=== PATIENT | female | born 1985 ===

== ENCOUNTER 2017-02-13 11:00 | Outpatient (CLI) | payer OTHER | END 2017-02-13 11:01 | disposition home or self-care (01) | LOC: LAB.R 11:00 | PROVIDERS: ATTEND Obstetrics & Gynecology | DX: Z11.3 Encounter for screening for infections with a predominantly sexual mode of transmission (principal) | CPT/HCPCS: 87491; 87591 ==

== ENCOUNTER 2017-05-08 07:41 | Outpatient (CLI) | payer OTHER ==
--- NOTE | 2017-05-08 14:09 | DEXA Report ---
OB ULTRASOUND: 05/08/2017 CLINICAL INDICATION: anatomy. TECHNIQUE: Real-time scanning was performed with distribution sales representative static images obtained. LAST MENSTRUAL PERIOD 12/17/2016 Clinical Age 20 weeks 2 days US Age 20 weeks 6 days EFW Had[place] 378 grams EFW% Hadlock --- Heart Rate 159 EDC 09/23/2017 US EDC 09/19/2017 BPD [place] 20 weeks 4 days; Mean mm 48.0 HC [place] 21 weeks 2 days; Mean mm 189.4 AC [place] 21 weeks 2 days; Mean mm 161.3 FL [place] 20 weeks 1 day; Mean mm 32.7 Presentation transverse Placental Location anterior Cervical Length 4.1 cm Amniotic Fluid 16 cm FINDINGS: There is a single viable intrauterine gestation, in transverse lie. Feta heart rate is 159 BPM. The placenta is anterior, without evidence of previa. Amniotic fluid volume is normal, with an BESSY of 16.1. By size, the fetus measures 20 weeks 6 days (20 weeks 2 days by LMP dating). The following anatomic structures were visualized and appear normal: The intracranial contents, including the ventricles and posterior fossa; the lips and orbits; the spine; the heart, including 4 chamber view and outflow tracts, and diaphragm; the abdominal contents, including the stomach, the bilateral kidneys, and urinary bladder, as well as a normal 3 vessel cord insertion; 4 limbs. No free fluid or adnexal lesion is appreciated. IMPRESSION: SINGLE VIABLE INTRAUTERINE GESTATION, WITH SIZE IN KEEPING WITH LMP DATING. NORMAL ANATOMIC SURVEY. [facility]
== END 2017-05-08 07:42 | disposition home or self-care (01) ==
LOC: DI 07:41
PROVIDERS: ATTEND Obstetrics & Gynecology
DX: Z34.82 Encounter for supervision of other normal pregnancy, second trimester (principal)
CPT/HCPCS: 76811

== ENCOUNTER 2017-06-11 09:23 | Outpatient (CLI) | payer OTHER ==
[2017-06-11 11:07] LABS: HCT - HEMATOCRIT 34.6 % (37.0-47.0); HGB - HEMOGLOBIN 11.6 g/dL (12.0-16.0); MEAN CORPUSCULAR HEMOGLOBIN 28.3 pg (27.0-31.0); MEAN CORPUSCULAR HGB CONC 33.4 g/dL (32.0-36.0); MEAN CORPUSCULAR VOLUME 84.7 fL (81.0-99.0); MEAN PLATELET VOLUME 8.3 fL (7.9-10.8); RED BLOOD COUNT 4.09 10^6/uL (4.20-5.40); RED CELL DISTRIBUTION WIDTH 14.1 % (12.0-15.0); WHITE BLOOD COUNT 10.3 x10^3/uL (4.8-10.8)
== END 2017-06-11 09:24 | disposition home or self-care (01) ==
LOC: LAB 09:23
PROVIDERS: ATTEND Obstetrics & Gynecology
DX: Z34.90 Encounter for supervision of normal pregnancy, unspecified, unspecified trimester (principal)
CPT/HCPCS: 36415; 82950; 86850